=== PATIENT | female | born 1950 | race Caucasian/White ===

== ENCOUNTER → 2018-10-20 11:05 | Outpatient (CLI) | payer MEDICARE, SELFPAY ==
[2018-10-20 13:32] LABS: Absolute Lymphocyte Count 1.53 X10^3/ul (0.83-4.51); Absolute Neutrophil Count 4.9 X10^3/uL (2.0-7.7); Basophil# 0.02 X10^3/uL; Basophil% 0.3 % (0-1); Eosinophils% 1.4 % (0-5); Hematocrit 46.5 % (37-47); Lymphocyte # 1.53 X10^3/ul (4.0); Lymphocyte % 21.8 % (19-41); Mean Corp Hgb Conc 32.3 g/gl (32-36); Mean Corpuscular Hgb 28.2 pg (27.0-32.0); Mean Corpuscular Volume 87.6 fL (81-99); Mean Platelet Vol. 10.8 fl (6.2-12.0); Monocyte% 7.1 % (0-10); Neutrophil # 4.86 X10^3/uL (2.7-7.7); Neutrophil % 69.4 % (47-70); Platelet Count 264 K/mm3 (150-450); RBC Distribution Width CV 13.5 % (11.6-14.6); Red Blood Count 5.31 M/mm3 (4.2-5.4)
[2018-10-20 13:35] LABS: POSITIVE COUNT NO; POSITIVE DIFFERENTIAL NO; POSITIVE MORPHOLOGY NO
[2018-10-20 14:30] LABS: ALB/GLOB Ratio 1.2 RATIO (0.9-2.4); AST(SGOT) 21 U/L (15-37); Alanine Aminotransfer ALT/SGPT 21 U/L (13-56); Alkaline Phosphatase 89 U/L (45-117); Anion Gap 11 (5-15); BUN 14 mg/dL (7-18); Calcium,Total 9.1 mg/dL (8.5-10.1); Chloride 106 mmol/L (98-107); Creatinine, Serum 0.82 mg/dL (0.55-1.02); EST Glomerular Filtration Rate 73 mL/min (>60); Est Glom Filt Rate - Afr Amer 88 mL/min (>60); Globulin 3.2 g/dL (2.2-4.2); Glucose 79 mg/dL (74-106); Potassium 4.1 mmol/L (3.5-5.1); Protein, Total 7.2 g/dL (6.4-8.2); Sodium Level 143 mmol/L (136-145); Thyroid Stim Hormone (TSH) 4.34 uIU/mL (0.358-3.74)
--- OUTSIDE RECORDS SUMMARY | 2018-12-06 03:43 | XMS RPT_ITS ---
:1950 Author Organization OHIP Care Team Providers Name Role Phone Jose Panda Attending Unavailable Panda, Jose Primary Care Unavailable JOSE PERALTA Referring Unavailable PANDAJOSE Referring Unavailable PANDAJOSE Referring Unavailable SUSANGUS Attending Unavailable GUS DAVIS Primary Care Unavailable NewbillBarry Admitting Unavailable NewbillBarry Attending Unavailable Jose Panda Primary Care Unavailable Newbill, Barry George Attending Unavailable PandaJose liu Primary Care Unavailable NewbillBarry Admitting Unavailable WoodEboni Admitting Unavailable WoodEboni Attending Unavailable Jose Panda Primary Care Unavailable Newbill, Barry George Admitting Unavailable Newbill, Barry George Attending Unavailable Jose Panda Primary Care Unavailable PROBLEMS PROBLEMS DATE TYPE CONDITION / CODE ATTENDING STATUS SOURCE 01/27/2018 Active Unknown / NA Active [facility] UNK(Unknown) [place] Repository PROCEDURES PROCEDURES No Procedure Records FoundRESULTS RESULTS CBC W/DIFF, AUTOMATED Collected: 10/20/2018 Status: F Source: [place] 11:[address] [facility] REPOSITORY TYPE CODE TESTS RESULT OUT OF RANGE REFERENCE UNITS LAB L100.1000 4.4-11.0 K/mm3 Normal WBC 7.0 LAB L100.1200 4.2-5.4 M/mm3 Normal RBC 5.31 LAB L100.1300 12.0-15.0 g/dl Normal HGB 15.0 LAB L100.1400 37-47 % Normal HCT 46.5 LAB L100.1500 81-99 fL Normal MCV 87.6 LAB L100.1600 27.0-32.0 pg Normal MCH 28.2 LAB L100.1700 32-36 g/gl Normal MCHC 32.3 LAB L100.1810 11.6-14.6 % Normal RDW CV 13.5 LAB L100.1820 35.1-43.9 fl Normal RDW SD 43.0 LAB L100.1900 150-450 K/mm3 Normal PLT 264 LAB L100.2000 6.2-12.0 fl Normal MPV 10.8 LAB L100.2100 47-70 % Normal NEUT% 69.4 LAB L100.2200 19-41 % Normal LY% 21.8 LAB L100.2300 0-10 % Normal MONO% 7.1 LAB L100.2400 0-5 % Normal EO% 1.4 LAB L100.2500 0-1 % Normal BASO% 0.3 LAB L100.2550 0.0-0.9 % Normal IM GRAN % 0.000 Result Comment: IG% - Immature Granulocytes (promyelocytes, myelocytes and metamyelocytes) > 1% indicates that a LEFT SHIFT is Present. LAB L100.2620 2.0-7.7 X10 3/uL Normal Absolute Neut 4.9 LAB L100.2720 0.83-4.51 X10 3/ul Normal Absolute Lymph 1.53 Performed By: #### L100.0100 #### [facility] [address] [place], [address] COMPREHENSIVE METABOLIC Collected: 10/20/2018 Status: F Source: [facility] 11:[address] [facility] REPOSITORY TYPE CODE TESTS RESULT OUT OF RANGE REFERENCE UNITS LAB L501.0100 74-106 mg/dL Normal GLU 79 Result Comment: Please note revised GLUCOSE reference range effective 2017. LAB L501.1000 7-18 mg/dL Normal BUN 14 LAB L501.1100 0.55-1.02 mg/dL Normal CREAT,SERUM 0.82 Result Comment: The validity of the calculated GFR AND GFRAA in patients over 70 years has not been determined. Clinical correlation is essential. LAB L501.1110 >60 mL/min Normal EST GFR 73 Result Comment: Non- GFR Calc LAB L501.1115 >60 mL/min Normal EST GFR - AA 88 Result Comment: GFR Calc LAB L501.1300 10-20 RATIO Normal BUN/CRE 17.0 LAB L501.1500 6.4-8.2 g/dL T Normal PROT 7.2 LAB L501.1800 3.2-5.0 g/dL Normal ALB 4.0 LAB L501.1950 2.2-4.2 g/dL Normal GLOB 3.2 LAB L501.2000 0.9-2.4 RATIO Normal A/G 1.2 LAB L501.2200 8.5-10.1 mg/dL CA Normal 9.1 LAB L501.4100 15-37 U/L Normal AST 21 LAB L501.4305 45-117 U/L Normal ALK P 89 LAB L501.4405 13-56 U/L Normal ALT 21 LAB L501.4600 0.20-1.00 mg/dL T Normal BILI 0.50 LAB L501.5300 136-145 mmol/L NA Normal 143 LAB L501.5600 3.5-5.1 mmol/L K Normal 4.1 LAB L501.5900 98-107 mmol/L CL Normal 106 LAB L501.6100 21.0-32.0 mmol/L Normal CO2 26.0 LAB L501.6200 5-15 Normal GAP 11 Performed By: #### L500.4050, L501.9520 #### [facility] [address] [place], [place], [address] THYROID STIM HORMONE Collected: 10/20/2018 Status: F Source: KHRIS (TSH) 11:[address] [facility] REPOSITORY TYPE CODE TESTS RESULT OUT OF RANGE REFERENCE UNITS LAB L501.9520 0.358-3.74 uIU/mL High TSH 4.34 Performed By: #### L500.4050, L501.9520 #### [facility] [address] [place], [place], [address] Observed: 06/30/2018 Status: F Source: LC C URINE 12:27 PM [facility] REPOSITORY Final Report: Light growth of Normal skin jeanette isolated Performed By: #### [id number] #### NOEL Microbiology Subsection [address] [place] [address] CNCO Observed: 01/31/2018 Status: COMPLETED Source: ZHAO 10:31 AM [facility] REPOSITORY HNO ID: [id number] Author: Mammography Coordinator Service: (none) Author Type: Physician Type: Letter Filed: 02/01/2018 11:31 PM Note Text: January 31, 2018 PID: [id number] Radha Das [address] [place] [address] Dear Ms. Das, Your recent breast imaging examination performed on 01/31/2018 showed an area that we believe is probably benign (not cancer). A six month follow-up is recommended to ensure your breast health. Please call [phone] to schedule an appointment for these tests if you have not already done so. Early detection of cancer is very important. We also understand recommendations regarding breast cancer screening are controversial. Please discuss with your primary care provider which strategy is best for you and whether a mammogram is right for you. Your breast images and report will be kept on file here as part of your permanent medical record and are available for your continuing care. Thank you for allowing us to help in meeting your health care needs. Sincerely, Dr. Perry Interpreting Radiologist [facility] (# mo Follow-up) [place] Observed: 01/31/2018 Status: F Source: [facility] 10:05 AM [facility] REPOSITORY * * *Final Report* * * DATE OF EXAM: Jan 31 2018 10:05AM U 0593 - [place] LT / PROCEDURE REASON: call back right breast * * * * Physician Interpretation * * * * #[id number] - [place] ULTRASOUND OF LEFT BREAST: 01/31/2018 HISTORY: Call Back Right Breast. RESULT: No prior exams were available for comparison. Ultrasound of the left breast was performed. Pineda scale images of the real-time examination were reviewed. There is a benign 1.4 cm oval lesion in the left breast at 10 o'clock anterior depth. This oval lesion is hypoechoic. This correlates with mammography findings. There are related calcifications. There is an associated biopsy clip. Postsurgical change similiar to previous studies. IMPRESSION: BENIGN FINDING There is no sonographic evidence of malignancy. The 1.4 cm oval lesion in the left breast is benign. There is no abnormality seen in the left breast to correspond with the mammographic density. Cynthia felton/penrad:01/31/2018 11:09:21 Utilization Review Nurse: Jazzy Rosario [facility] Ultrasound BI-RADS: 2 Benign finding Driver Sales: Tate Transcribe Date/Time: Jan 31 2018 9:49A Dictated by : CYNTHIA PERRY DO This examination was interpreted and the report reviewed and electronically signed by: CYNTHIA PERRY DO on Jan 31 2018 11:09AM EST [id number] [facility] US BREAST LTD Observed: 01/31/2018 Status: F Source: [place] 9:[address] [facility] [place] REPOSITORY * * *Final Report* * * DATE OF EXAM: Jan 31 2018 9:49AM WRU 0594 - [facility] US BREAST LTD RT / PROCEDURE REASON: CALLBACK JOMAR BREAST, ABNORMAL MAMM * * * * Physician Interpretation * * * * #[id number] - [facility] US BREAST LTD RT ULTRASOUND OF RIGHT BREAST: 01/31/2018 HISTORY: Callback Jomar Breast, Abnormal Mamm. RESULT: No prior exams were available for comparison. Ultrasound of the right breast was performed. Pineda scale images of the real-time examination were reviewed. There are probably benign cysts right breast at 1, 2, 3, and 5 o'clock. IMPRESSION: PROBABLY BENIGN - SHORT TERM INTERVAL FOLLOW-UP RECOMMENDED Cynthia felton/tate:01/31/2018 10:24:20 Utilization Review Nurse: Jazzy Rosario [facility] Ultrasound BI-RADS: 3 Probably benign finding - short term interval follow-up recommended Driver Sales: Tate Transcribe Date/Time: Jan 31 2018 9:33A Dictated by : CYNTHIA PERRY DO This examination was interpreted and the report reviewed and electronically signed by: CYNTHIA PERRY DO on Jan 31 2018 10:24AM EST [id number] PROGRESS Observed: 01/31/2018 Status: COMPLETED Source: [place] 9:[address] [facility] REPOSITORY HNO ID: [id number] Author: Jazzy Rosario Rdms Service: (none) Author Type: (none) Type: Progress Notes Filed: 01/31/2018 12:00 PM Note Text: Radiology Service Progress Note PATIENT NAME: Radha Das DATE OF SERVICE: January 31, 2018 TIME: 9:29 AM PATIENT IDENTITY VERIFICATION COMPLETED USING TWO (2) METHODS: Patient confirmed name verbally and Date of . PATIENT GENDER DATA: Female. status: : No status: NO. PATIENT RELEVANT IMPLANT DATA REVIEWED: Not Applicable RADIOLOGY DEPARTMENT: Ultrasound PERIPHERAL IV DATA: Not applicable SIGNED BY: Jazzy Rosario Rdms January 31, 2018 9:29 AM [facility] DIAGNOSTIC JOMAR Observed: 01/31/2018 Status: F Source: [place] 9:[address] [facility] REPOSITORY * * *Final Report* * * DATE OF EXAM: Jan 31 2018 9:04AM WRW 0620 - [facility] DIAGNOSTIC JOMAR / PROCEDURE REASON: CALLBACK JOMAR BREAST, ABNORMAL MAMM * * * * Physician Interpretation * * * * RESULT: #[id number] - [facility] DIAGNOSTIC JOMAR BILATERAL DIGITAL DIAGNOSTIC MAMMOGRAM WITH CAD: 01/31/2018 HISTORY: Callback Jomar Breast, Abnormal Mamm/priors available for comparison. RESULT: TECHNIQUE: The study was acquired using full field digital technology and interpreted from soft copy. Current study was also evaluated with a Computer Aided Detection (CAD). Comparison is made to exams dated: 01/27/2018 mammogram, 01/10/2017 mammogram - [facility], 11/28/2015 mammogram, and 11/27/2014 mammogram - [facility]. The tissue of both breasts is heterogeneously dense. This may lower the sensitivity of mammography. There are post operative findings in the right breast. There also is a biopsy clip in the left breast. There are multiple asymmetries in the right breast anterior depth medial region seen on the craniocaudal view only. There is an asymmetry in the left breast posterior depth medial region seen on the craniocaudal view only. No other significant masses or calcifications are seen in either breast. IMPRESSION: PROBABLY BENIGN - SHORT TERM INTERVAL FOLLOW-UP RECOMMENDED The multiple asymmetries in the right breast anterior depth medial region seen on the craniocaudal view only are indeterminate. An ultrasound is recommended. The asymmetry in the left breast posterior depth medial region seen on the craniocaudal view only is indeterminate. An ultrasound is recommended. A follow-up mammogram and an ultrasound in 6 months is recommended to demonstrate stability. SUMMARY: Mammogram showed new asymmetric densities medial to the nipple in the cc view on the RIGHT side. Several small cystic and complex cystic areas were identified on ultrasound.Cannot be sure these correspond to the same area.Asymmetric density deep against the chest wall medially LEFT cc view. No abnormality identified in this area on Recommendation: Short-term follow-up bilateral diagnostic mammogram and ultrasound in 6 months.ultrasound.Findings discussed with the patient. Cynthia felton/tate:01/31/2018 10:31:09 Utilization Review Nurse: Melissa LEGER)(Juarez), [facility] letter sent: # Mo FU Mammogram BI-RADS: 3 Probably benign finding - short term interval follow-up recommended Driver Sales: Tate Transcribe Date/Time: Jan 31 2018 8:32A Dictated by: CYNTHIA PERRY DO This examination was interpreted and the report reviewed and electronically signed by: CYNTHIA PERRY DO on Jan 31 2018 10:31AM EST [id number] PROGRESS Observed: 01/31/2018 Status: COMPLETED Source: [place] 8:29 AM [facility] REPOSITORY HNO ID: [id number] Author: Danna Kenney Service: (none) Author Type: (none) Type: Progress Notes Filed: 01/31/2018 9:21 AM Note Text: Radiology Service Progress Note PATIENT NAME: Radha Das DATE OF SERVICE: January 31, 2018 TIME: 8:29 AM PATIENT IDENTITY VERIFICATION COMPLETED USING TWO (2) METHODS: Patient confirmed name verbally and Date of . PATIENT GENDER DATA: Female. status: : No status: NO. PATIENT RELEVANT IMPLANT DATA REVIEWED: Not Applicable RADIOLOGY DEPARTMENT: [facility] jomar diag mammogram PERIPHERAL IV DATA: Not applicable SIGNED BY: Danna Kenney January 31, 2018 8:29 AM CNCO Observed: 01/27/2018 Status: COMPLETED Source: [place] 12:44 PM [facility] REPOSITORY HNO ID: [id number] Author: Mammography Coordinator Service: (none) Author Type: Physician Type: Letter Filed: 01/30/2018 11:33 PM Note Text: January 27, 2018 PID: [id number] Radha Das [address] [place] [address] Dear Ms. Das, Your recent breast imaging exam on 01/27/2018 showed a possible finding that requires additional imaging studies for a complete evaluation. Most such findings are probably benign (not cancer). Please call [phone] to schedule an appointment for these tests if you have not already done so. Your mammogram demonstrates that you have dense breast tissue, which could hide abnormalities. Dense breast tissue, in and of itself, is a relatively common condition. Therefore, this information is not provided to cause undue concern; rather, it is to raise your awareness and promote discussion with your health care provider regarding the presence of dense breast tissue in addition to other risk factors. Your breast images and report will be kept on file here as part of your permanent medical record and are available for your continuing care. Thank you for allowing us to help in meeting your health care needs. Sincerely, Dr. Villafuerte Interpreting Radiologist [facility] (Additional imaging) [facility] SCREENING Observed: 01/27/2018 Status: F Source: [place] 11:[address] [facility] [place] REPOSITORY * * *Final Report* * * DATE OF EXAM: Jan 27 2018 11:54AM CRUZ 0581 - [facility] SCREENING / PROCEDURE REASON: screening * * * * Physician Interpretation * * * * RESULT: #[id number] - [facility] SCREENING BILATERAL DIGITAL SCREENING MAMMOGRAM WITH CAD: 01/27/2018 HISTORY: Screening Mammogram - patient reports NO breast symptoms /priors available for comparison. RESULT: TECHNIQUE: The study was acquired using full field digital technology and interpreted from soft copy. Current study was also evaluated with a Computer Aided Detection (CAD). Comparison is made to exams dated: 01/10/2017 mammogram - [facility], 11/28/2015 mammogram, and 11/27/2014 mammogram - [facility]. The tissue of both breasts is heterogeneously dense. This may lower the sensitivity of mammography. The patient is status post lumpectomy right breast. There is a biopsy clip in the left breast. There are possible multiple asymmetries in the right breast anterior depth inner region seen on the craniocaudal view only. No other significant masses, calcifications, or other findings are seen in either breast. IMPRESSION: INCOMPLETE: NEEDS ADDITIONAL IMAGING EVALUATION The possible multiple asymmetries in the right breast are indeterminate. Additional views are recommended. Repeat CC view of the left breast is required for motion. Shawanda Villafuerte M.D. cp/penrad:01/27/2018 12:44:38 Utilization Review Nurse: Lindsey KENNEY(R)(M), [place] [facility] letter sent: Additional Imaging Needed Mammogram BI-RADS: 0 Incomplete: needs additional imaging evaluation Driver Sales: Tate Transcribe Date/Time: Jan 27 2018 9:48A Dictated by: SHAWANDA VILLAFUERTE MD This examination was interpreted and the report reviewed and electronically signed by: SHAWANDA VILLAFUERTE MD on Jan 27 2018 12:44PM EST [id number] PROGRESS Observed: 01/27/2018 Status: COMPLETED Source: [place] 9:28 AM [facility] REPOSITORY HNO ID: [id number] Author: Kimberlee Kenney Service: (none) Author Type: (none) Type: Progress Notes Filed: 01/27/2018 9:29 AM Note Text: Radiology Service Progress Note PATIENT NAME: Radha Das DATE OF SERVICE: January 27, 2018 TIME: 9:28 AM PATIENT IDENTITY VERIFICATION COMPLETED USING TWO (2) METHODS: Patient confirmed name verbally and Date of . PATIENT GENDER DATA: Female. status: : No status: NO. PATIENT RELEVANT IMPLANT DATA REVIEWED: Not Applicable RADIOLOGY DEPARTMENT: [facility] DATA: Not applicable SIGNED BY: Kimberlee Kenney January 27, 2018 9:28 AM ALLERGIES ALLERGIES DATE TYPE / CODE NAME / CODE REACTION SEVERITY SOURCE 05/22/2009 DRUG MOLD [facility] INGREDI/[address] [place] 153310(SNOM Repository ED CT) 11/14/2007 DRUG CEFACLOR ITCHING [facility] INGREDI/[address] [place] 424702(SNOM Repository ED CT) 11/14/2007 Environ/420 DUST MITES ITCHING [facility] 645449(SN [place] ED CT) Repository 11/14/2007 DRUG GRASS POLLEN ITCHING [facility] INGREDI/[address] [place] 977267(SNOM Repository ED CT) 11/14/2007 DRUG HYDROCODONE ITCHING [facility] INGREDI/[address] [place] 427628(SNOM Repository ED CT) 11/14/2007 Environ/420 TREES ITCHING [facility] 631262([facility] ED CT) Repository Drug/828046 Vicodin [id number] [place] [address]([facility] CT) System Repository Drug/063014 Ceclor [id number] [address]([facility]) System Repository ENCOUNTERS ENCOUNTERS ADMIT/DISCHARGE ACCOUNT NUMBER ADMITTING ENCOUNTER LOCATION SOURCE CLASS 11/13/2018/11/13/19 [id number] [facility], Ambulatory [place] [address] [facility] ding:[facility] Church Repository Urgent Care 10/20/2018 [id number] Ambulatory [facility] ding:[facility] Repository 09/23/2018/09/23/20 [id number] [place], Ambulatory [facility] [address] g:QCareRoom: [address] System Repository 06/30/2018/06/30/20 [id number] [facility] [address] [facility] ding:.[facility] Repository 06/30/2018/06/30/20 [id number] [facility], [facility]ulatory [facility] [address] g:QCareRoom: [address] System Repository 06/30/[id number] Repository 01/31/2018/02/01/20 [id number] Ambulatory [address] Repository 01/31/2018/02/01/20 [id number] Ambulatory [address] Repository 01/27/2018/01/28/20 [id number] Ambulatory [address] Repository 12/04/2017 [id number] Ambulatory Building:[facility] Repository PAYERS PAYERS ENCOUNTER GUARANTOR PAYER SUBSCRIBER SOURCE 11/13/2018 RADHA Cardona Primary RADHA HODGSON: Insurance:MedicarePol HARDYDOB: [facility] [id number] icy Number: Effective [id number] System [facility], Date:2018-11-13 - [facility] [id number] [place] [address]Dcm: Name:CD:[id number] [place] [id number]: [id number], [place] () [phone]: [phone]) (HP) [phone] (WP) 11/13/2018 Secondary RADHA J [place] Insurance:HUMANAPolic HARDYDOB: [facility] y Number: Effective [id number] System Date:2018-11-13 - [facility], Repository [id number] [place] Name:CD:[id number] [address] [address]Npn: [address] [place] [address] [phone]: [phone] (HP) [phone] (WP) 10/20/2018 Radha [id number] Primary Radha HardyDOB: [facility], Insurance:MEDICARE [id number] [facility] 03594Ksk: PART A [facility] Number: Repository () [id number] Date:2018-10-20 10/20/2018 Secondary Radha HardyDOB: [place] Insurance:HUMANA [id number] MEDICARE [facility] Number: Repository [id number] Date:[id number] [address] [place] [address]EO: 10/20/2018 Tertiary NOT GIVENUNK [place] Insurance:SELF PAY [facility] Number: Effective Repository Date:2018-10-20 09/23/2018 RADHA J Primary RADHA J [place] HARDYDOB: Insurance:1500 HARDYDOB: [facility] MEDICARE [id number] System [facility] Number: [facility], [facility] [address]Xlp: Date:2018-09-2398924-3427Mfo: [id number] (HP) Name:CD:[id number] O (HP)Tel: 000) [address], 000-0000 (WP) [place] [address]DV: 09/23/2018 Secondary RADHA J [address] Insurance:1500 [facility] Number: [id number] System Effective [facility], Repository Date:2018-09-23 [place] [id number] [address]Gme: Name:CD:[id number] [address] [address]CKIXJVAAZ, (HP)Tel: (384) [place] [address]OW: 000-0000 (WP) 06/30/2018 RADHA J Primary RADHA J [place] HARDYDOB: Insurance:MedicarePol HARDYDOB: [facility] icy Number: Effective [id number] System [facility], Date:2018-06-30 - [facility], [facility] [place] [id number] [place] [address]Cxj: Name:CD:[id number] [facility] [address]Jbl: [id number], [place] (HP) [phone]: [phone]) (HP) [phone] (WP) 06/30/2018 Secondary RADHA J [place] Insurance:HUMANAPolic NICKERSONDOB: [facility] y Number: Effective [id number] System Date:2018-06-30 - [facility] [id number] [place] Name:CD:[id number] [facility] [address]Wqr: [address] [place] [address] [phone]: [phone]) (HP) 000-0000 (WP) 06/30/2018 RADHA J Primary RADHA J [facility] HARDYDOB: Insurance:[facility] HARDYDOB: [facility] MEDICARE [id number] System [facility] Number: [facility] [place] [address]Qri: Date:2018-06-30Tel: [id number] (HP) Name:CD:[id number] O (HP)Tel: (000) [address]QR[address]AR[address], 000-0000 (WP) [place] [address]DF: 06/30/2018 Secondary RADHA Platt Insurance:[address] [place], [place] [address]DOB: [facility] HUMANAPolicy Number: [id number] System Effective [facility], Repository Date:2018-06-30 - [place] 4528-27-11Jobh [address]Fim: Name:CD:[id number] [address] [address]PTSMMBEVX, ()Tel: ([phone]) RN [phone]: [phone] 06/30/2018 RADHA MORELOSB: Primary [facility] [place] Insurance:[facility] [id number] [facility] Number: [facility], [facility] [id number]: [id number] [place] [id number]: Date:Plan Name:Health () (HP) 06/30/2018 Secondary RADHA MORELOSB: [place] Insurance:MedicarePol [id number] [facility] icy Number: [facility], [facility] [id number] [place] [id number]: Date:Plan Name:[facility] A () 06/30/2018 Tertiary RADHA DASDOB: [place] Insurance:MedicarePol [id number] [facility] icy Number: [facility] Repository [id number] [place] [id number]: Date:Plan Name:[employer] B () 06/30/2018 Tertiary RADHA MORELOSB: [place] Insurance:[facility] [id number] [facility] HumanaPolicy Number: [facility], [facility] [id number] [place] [id number]: Date:Plan Name:Health ()
== END ==
PROVIDERS: Family Provider Family Medicine; PCP Family Medicine; Visit Provider Family Medicine
DX: E03.9 Hypothyroidism, unspecified (principal); R53.83 Other fatigue
CPT/HCPCS: 36415; 80053; 84443; 85025